=== PATIENT | female | born 1950 | race Caucasian/White ===

== ENCOUNTER 2018-07-19 09:20 | Inpatient (IN) | payer BC, OTHER ==
[~2018-07-19 09:20] MED LIST: LIDOCAINE 2% 100 MG/5 ML SYR ONE; ONDANSETRON 4 MG/2 ML VIAL ONE; PHENYLEPHRINE HCL 100 MCG/ML SYR ONE; POVIDONE-IODINE 20 ML in SODIUM CL IRRIG SOLUTION 500 ML IRR ONE; PROPOFOL/EMULSION 500 MG/50 ML BOTTLE IV ONE; ROPIVACAINE 0.2% 80 MG, EPINEPHrine 0.2 MG, KETOROLAC TROMETHAMINE 30 MG in SYRINGE 0 ML IU ONE; TRANEXAMIC ACID 1,000 MG in NS 100 ML IV ONE; TRANEXAMIC ACID 3,000 MG in NS (SYRINGE) 50 ML IRR ONE; fentaNYL 100 MCG/2 ML INJ ONE
[2018-07-19] MEDS ORDERED: GABAPENTIN 300 MG CAP PO ONE (09:35)
[2018-07-19] MEDS ORDERED: LR 1,000 ML IV ONE (09:35)
[2018-07-19] MEDS ORDERED: DEXAMETHASONE 4 MG/ML VIAL IVP ONE (09:35)
[2018-07-19] MEDS ORDERED: FAMOTIDINE 20 MG TAB PO ONE (09:35)
[2018-07-19] MEDS ORDERED: ACETAMINOPHEN 325 MG TAB PO ONE (09:35)
[2018-07-19] MEDS ORDERED: ONDANSETRON 4 MG/2 ML VIAL IVP ONE (09:35)
[2018-07-19] MEDS ORDERED: ceFAZolin 2 GM/DEXTROSE 100 ML IV ONE (09:35)
[2018-07-19] MEDS ORDERED: TRANEXAMIC ACID 3,000 MG/50 ML BAG IRR ONE (10:26)
[2018-07-19] MEDS ORDERED: ceFAZolin 1 GM/5 ML SYR ONE (10:27)
--- NOTE | 2018-07-19 12:25 | PDHPUP ---
History & Physical Update H&P update statement: This history and physical update is based on an assessment of the patient which was completed after admission or registration (within 24 hours), but prior to the surgery/procedure. H&P update: H&P reviewed & patient examined
[2018-07-19] MEDS ORDERED: MIDAZOLAM 2 MG/2 ML VIAL IVP ONE (12:59)
--- NOTE | 2018-07-19 12:59 | PDANEPAE ---
ANE History of Present Illness Right hip pain, here for R AVINASH ANE Past Medical History - Cardiovascular History Hx Hypertension: No Hx Arrhythmias: No Hx Chest Pain: No Hx Coronary Artery / Peripheral Vascular Disease: No Hx CHF / Valvular Disease: No Hx Palpitations: No Cardiovascular History Comment: HEART MURMUR - Pulmonary History Hx COPD: No Hx Asthma/Reactive Airway Disease: No Hx Recent Upper Respiratory Infection: No Hx Oxygen in Use at Home: No Hx Sleep Apnea: No Sleep Apnea Screening Result - Last Documented: Negative Pulmonary History Comment: CHRONIC NON PRODUCTIVE COUGH. WILL USE INHALERS - Neurologic History Hx Cerebrovascular Accident: No Hx Seizures: No Hx Dementia: No - Endocrine History Hx Diabetes: No - Renal History Hx Renal Disorders: No - Liver History Hx Hepatic Disorders: No - Neurological & Psychiatric Hx Hx Neurological and Psychiatric Disorders: No - Cancer History Hx Cancer: No - Congenital Disorder History Hx Congenital Disorders: No - GI History Hx Gastrointestinal Disorders: No - Other Health History Other Health History: OSTEOARTHRITIS. LOWER PARTIAL - Chronic Pain History Chronic Pain: Yes (RT HIP) - Surgical History Prior Surgeries: HYSTEROSCOPY. RT BREAST BX. TONSILLECTOMY ANE Review of Systems Review of Systems: - Exercise capacity METS (RN): 4 METS ANE Patient History - Allergies Allergies/Adverse Reactions: No Known Allergies Allergy (Verified 07/01/18 16:21) - Home Medications Home Medications: Albuterol [Ventolin Hfa Inhaler] 1 - 2 puffs IH Q4 PRN 07/01/18 [Last Taken 4 Days Ago ~07/15/18] Cholecalciferol Vit D3 [Vitamin D3 2000 units tab (OTC)] 2,000 units PO DAILY [Last Taken 2 Weeks Ago ~07/05/18] Fluticasone Hfa 110 Mcg [Flovent 110 MCG Hfa MDI (*)] 1 puffs IH BID 07/01/18 [ Last Taken 07/19/18 06:30] Ibuprofen [Motrin (*)] 400 mg PO BID 07/01/18 [Last Taken 1 Week Ago ~07/12/18] Multivitamins [Multivitamin (*)] 1 each PO DAILY 07/01/18 [Last Taken 2 Weeks Ago ~07/05/18] diphenhydrAMINE [Benadryl 12.5MG/5ML Oral Liquid (*)] 12.5 mg PO DAILY PRN 07/01 [Last Taken 1 Week Ago ~07/12/18] Tylenol Extra Strength 500 mg PRN 07/19/18 [Last Taken 1 Day Ago ~07/18/18] - NPO status NPO Since - Liquids (Date): 07/19/18 NPO Since - Liquids (Time): 06:30 NPO Since - Solids (Date): 07/18/18 NPO Since - Solids (Time): 18:30 - Smoking Hx Smoking Status: Never smoked ANE Labs/Vital Signs - Vital Signs Blood Pressure: 141/81 Heart Rate: 64 Respiratory Rate: 12 O2 Sat (%): 93 Height: 167.64 cm Weight: 67.132 kg ANE Physical Exam - Airway Neck exam: FROM Mallampati Score: Class 2 Mouth exam: normal dental/mouth exam - Pulmonary Pulmonary: no respiratory distress, no rales or rhonchi - Cardiovascular Cardiovascular: regular rate and rhythym, no murmur, rub, or gallop - ASA Status ASA Status: II ANE Anesthesia Plan Anesthesia Plan: GA with mask, spinal Total IV Anesthesia: Yes
[2018-07-19] MEDS ORDERED: MIDAZOLAM 2 MG/2 ML VIAL ONE (13:00)
[2018-07-19] MEDS ORDERED: BUPIVACAINE 0.75% 10 ML SDV ONE (13:16)
[2018-07-19] MEDS ORDERED: BUPIVACAINE/DEXTROSE 7.5MG/ML 2 ML SPINAL AMP SP ONE (13:18)
[2018-07-19] MEDS ORDERED: PROPOFOL/EMULSION 500 MG/50 ML BOTTLE IV ONE (14:11)
[2018-07-19] MEDS ORDERED: oxyCODONE IR 5 MG TAB PO PRN (14:40)
[2018-07-19] MEDS ORDERED: PROMETHAZINE HCL 25 MG/ML INJ IVP PRN ×2 (14:40→15:14)
[2018-07-19] MEDS ORDERED: fentaNYL 100 MCG/2 ML INJ IVP PRN (14:40)
[2018-07-19] MEDS ORDERED: HYDROCODONE/APAP 5/325 TAB PO PRN (14:40)
[2018-07-19] MEDS ORDERED: NALOXONE HCL 0.4 MG/ML INJ IVP PRN (14:40)
[2018-07-19] MEDS ORDERED: DIAZEPAM 5 MG/ML 1 ML SYR IVP PRN (14:40)
[2018-07-19] MEDS ORDERED: HYDROmorphONE/DILAUDID 2 MG/ML INJ IVP PRN (14:40)
[2018-07-19] MEDS ORDERED: ONDANSETRON 4 MG/2 ML VIAL IVP PRN ×2 (14:40→15:14)
[2018-07-19] MEDS ORDERED: ACETAMINOPHEN 500 MG TAB PO PRN (14:40)
--- NOTE | 2018-07-19 14:59 | POSTOPPROG ---
Post Op Note Date of Operation: 07/19/18 Surgeon: Matt Baldwin Paper Stripper: Tito Anesthesiologist: Thelma Anesthesia: IV Sedation, Spinal Post-op Diagnosis: Right hip severe degenerative arthritis. Procedure: Right total hip arthroplasty Inf/Abcess present in the surg proc area at time of surgery?: No EBL: 100-500
[2018-07-19] MEDS ORDERED: POLYETHYLENE GLYCOL 3350 17 GM PKT PO PRN (15:14)
[2018-07-19] MEDS ORDERED: METOCLOPRAMIDE 10 MG/2 ML VIAL IVP PRN (15:14)
[2018-07-19] MEDS ORDERED: DIPHENOXYLATE/ATROPINE LOMOTIL 1 TAB PO PRN (15:14)
[2018-07-19] MEDS ORDERED: CYCLOBENZAPRINE 10 MG TAB PO PRN (15:14)
[2018-07-19] MEDS ORDERED: TEMAZEPAM 15 MG CAP PO PRN (15:14)
[2018-07-19] MEDS ORDERED: PROMETHAZINE HCL 25 MG SUPPR PR PRN (15:14)
[2018-07-19] MEDS ORDERED: diphenhydrAMINE 25 MG CAP PO PRN (15:14)
[2018-07-19] MEDS ORDERED: MAGNESIUM HYDROXIDE 30 ML UDCUP PO PRN (15:14)
[2018-07-19] MEDS ORDERED: LACTULOSE 20 GM/30 ML UDCUP PO PRN (15:14)
[2018-07-19] MEDS ORDERED: ONDANSETRON DISINTEGRATING 4 MG TAB PO PRN (15:14)
[2018-07-19] MEDS ORDERED: traMADol 50 MG TAB PO PRN (15:14)
[2018-07-19] MEDS ORDERED: NS 500 ML IV PRN (15:14)
[2018-07-19] MEDS ORDERED: BISACODYL 10 MG SUPP PR PRN (15:14)
[2018-07-19] MEDS ORDERED: LR 1,000 ML IV SCH (15:30)
--- NOTE | 2018-07-19 15:32 | PDMN ---
Medical Necessity Medical necessity: [facility] – [place] M560 hip arthroplasty A-2 days OP: R AVINASH -- AUTH# [id number] APPROVED FOR CPT 68318 DONE INPT LOS 1 DAY
--- NOTE | 2018-07-19 15:58 | GOP ---
DATE OF OPERATION: 07/19/2018 SURGEON: Matt Baldwin MD SYSTEM ARCHIVE ANALYST: ANA Kulkarni. Garrison Menjivar CFA. ANESTHESIA: A combination of Marcaine, spinal, and IV sedation. ANESTHESIOLOGIST: Vashti Renee DO. PREOPERATIVE DIAGNOSIS: Right hip severe degenerative arthritis. POSTOPERATIVE DIAGNOSIS: Right hip severe degenerative arthritis. PROCEDURE PERFORMED: A right total hip arthroplasty, ceramic femoral head on highly cross-linked danielle yethylene cup liner. FINDINGS: DESCRIPTION OF PROCEDURE: The patient was given 2 g of IV Ancef preoperatively within 60 minutes of surgery. She also received 1000 mg of IV tranexamic acid. She was placed on the operating room tabl e and given spinal anesthesia with Marcaine by Dr. Renee. She was then placed supine and given IV se dation. A Sarabia catheter was not used. She wore a CJ stocking and SCD on the nonoperative leg. Sh e was rolled to the left lateral decubitus position. The position was secured with the pegboard tabl e attachment. An axillary roll was used, and all pressure points were carefully padded. I was caref ul to lock her pelvis in a rigid vertical position. Her perineum was isolated with plastic adhesive drapes. Her right hip and right lower extremity were prepped with ChloraPrep. They were draped free using sterile sheets, stockinette, and Ioban plastic adhesive drape. The [employer] time-out was performed to verify the correct surgical side and site and the correct patient identity. The [place] time-out was also performed. I made a 5-inch straight oblique posterolateral hip skin incision. Subcutaneous tissues were sharply divided, and hemostasis was obtained using electrocautery. Her fascia amber was identified and split distally along the axis of its fibers. I then curved posteriorly and proximally, and split the fasc ia of the gluteus phoenix and bluntly split the muscle fibers in line with their orientation. A Aster nley self-retaining retractor was inserted. She had a ganglion originating off her posterior capsule behind her greater trochanter. As I was dividing her external rotators, I entered into the ganglion . She had about 8 or 10 cc of clear yellow fluid. The ganglion was excised. The external rotators and the posterior hip capsule were divided as separate layers at the base of the femoral neck, tagged , and reflected posteriorly. A smooth 1/8-inch Steinmann pin was inserted vertically into the ilium, superior to the acetabulum. An 8-inch drill bit was inserted vertically into the greater trochanter and parallel to the first pin. The distance between the two was measured for leg length reference. Her femoral head was dislocated posteriorly. Severe degenerative changes were present on the femora l head. Her femoral neck was osteotomized at the appropriate level and inclination. I was careful to preserve all the posterior capsule and most of the anterior capsule. The remnant of her badly damaged labrum was excised. I prepared the femur first. This allowed me to upholsterer assembly line the amount of natural femoral neck anteversion. This, in turn, allowed me to later determine the correct amount of cup anteversion. She had approx imately 15 degrees of natural femoral neck anteversion. The canal was opened laterally with a box ch justine. I hand broached sequentially up to a size 4. I used a Merari Accolade II size 4 broach as a trial stem. I was careful to lateralize adequately. Appropriate retractors were inserted to expose her acetabulum. The acetabulum was reamed sequentiall y up to 52 mm. I selected the 52 mm Merari Tritanium Trident II cluster hole hemispherical shell. This was tapped securely into place in the proper degree of inclination anteversion. I performed a series of trial reductions to determine length and stability. I obtained an intraopera tive cross-table AP pelvis x-ray. It was difficult to obtain a good quality x-ray. From what I coul d see, I concluded that her leg lengths were appropriate. She was about 4 mm short preoperatively, a nd I was intentionally lengthening her. There was good fill and fit of the femoral component. I suman t back and took about 5 degrees of anteversion out of the position of the acetabular component. For additional fixation of the acetabular shell, I inserted a 30 mm screw through the shell. The 0 degre e Merari X3 highly cross-linked polyethylene liner was inserted and tapped securely into place. The [place] Accolade II stem in a size 4 with high offset was inserted press-fit and was very tight fit. I did 1 final trial reduction and confirmed that the -2.5 neck length with a 36 mm head was the pro per combination. The [place] Biolox Delta ceramic head with an outside diameter of 36 mm and a neck length of -2.5 mm was tapped securely onto the clean trunnion. Her acetabulum was irrigated and mikaela lauren, and the hip was reduced 1 final time. She had excellent anterior and posterior stability and ap propriate length. 40 mL of the joint anesthetic cocktail was injected into the capsule, the deep musculature, and the s ubcutaneous tissues around the skin edges. The joint was thoroughly irrigated 1 final time with a di lute Betadine solution. 50 cc of tranexamic acid solution was irrigated into the wound and left in p lace. The external rotators and the posterior hip capsule were repaired in separate layers with #2 FiberWir e sutures through drill holes in the greater trochanter. This provided a strong posterior capsular a nd external rotator repair. The fascia amber was closed first with 2 [id number] #2 FiberWire sut ures followed by a running #2 barbed Ethicon Stratafix PDO suture. Subcutaneous tissues were closed in layers with interrupted 2-0 Monocryl sutures followed by a running 0 barbed Ethicon Stratafix Thomas derm suture. The skin was closed with a running 3-0 barbed Ethicon Stratafix Monoderm subcuticular s uture. The skin edges were reapproximated and sealed with Dermabond glue. The wound was covered wit h a large Mepilex waterproof surgical dressing. The sacral Mepilex dressing was also applied. A long-leg CJ stocking and SCD were applied to her right lower extremity. She wore a stocking and S CD on the opposite leg during the procedure. An abduction pillow was placed between her knees. She was awakened from anesthesia and rolled to the supine position on her [facility]. She was taken to PACU in satisfactory condition. There were no recognized intraoperative complications. The estimated blood loss about 400 mL. The sponge and needle count were correct on 2 occasions. I used a Merari Tritanium Trident II hemispherical cluster hole acetabular shell with an outside bereket meter of 52 mm. I used a 30 mm supplemental fixation screw. The liner was a [place] X3 0-degree hig hly cross-linked liner with an inside diameter of 36 mm. The femoral component was a press-fit Stryk er high offset Accolade II stem in a size 4. Her femoral head was a Merari Biolox Delta ceramic hea d with a -2.5 mm neck length and a 36 mm outside diameter. Ruben Banuelos and Garrison Menjivar acted as surgical assistants. Their assistance was a medical necess ity for safe completion of the procedure. Copy requested to: Garrison Menjivar [facility] ANA [facility] /[id number]/MODL
[2018-07-19] MEDS ORDERED: ALBUTEROL 60 PUFFS/8 GM MDI IH PRN (17:30)
[2018-07-19] MEDS: ACETAMINOPHEN 325 MG TAB PO SCH (18:04)
[2018-07-19] MEDS: KETOROLAC 15 MG/1 ML SDV IVP SCH (18:05)
[2018-07-19] MEDS: ceFAZolin 2 GM/DEXTROSE 100 ML IV SCH (21:29)
[2018-07-19] MEDS: ASPIRIN 325 MG TAB PO SCH (21:29)
[2018-07-19] MEDS: SENNOSIDES/DOCUSATE SODIUM TAB PO SCH (21:29)
[2018-07-19] MEDS: FAMOTIDINE 20 MG TAB PO SCH (21:29)
[2018-07-19] MEDS: oxyCODONE IR 5 MG TAB PO PRN (21:34)
[2018-07-19] MEDS: FLUTICASONE HFA 110 MCG MDI IH SCH (22:04)
[2018-07-20] MEDS: ACETAMINOPHEN 325 MG TAB PO SCH ×3 (00:35→11:48)
[2018-07-20] MEDS: KETOROLAC 15 MG/1 ML SDV IVP SCH ×3 (00:35→11:49)
[2018-07-20] MEDS: ceFAZolin 2 GM/DEXTROSE 100 ML IV SCH (05:52)
[2018-07-20] MEDS ORDERED: FERROUS SULFATE 325 MG TAB PO SCH (08:00)
[2018-07-20] MEDS: oxyCODONE IR 5 MG TAB PO PRN (09:13)
[2018-07-20] MEDS: ASPIRIN 325 MG TAB PO SCH (09:13)
[2018-07-20] MEDS: SENNOSIDES/DOCUSATE SODIUM TAB PO SCH (09:13)
[2018-07-20] MEDS: FAMOTIDINE 20 MG TAB PO SCH (09:13)
[2018-07-20] MEDS: FLUTICASONE HFA 110 MCG MDI IH SCH (09:49)
--- NOTE | 2018-07-20 11:20 | SOAPPROG ---
SOAP Progress Note Assessment/Plan: Assessment: Afebrile. Moderate pain. H/H is good. Sciatic nerve intact. Films look good. Dsg is dry. Plan: DC today when cleared by PT. 07/20/18 11:19 Objective: Vital Signs Temp Pulse Resp BP Pulse Ox 36.8 C 68 16 116/68 95 07/20/18 07:21 07/20/18 09:50 07/20/18 09:50 07/20/18 07:21 07/20/18 09:50 Laboratory Results 07/20/18 04:33 07/19/18 07/20/18 07/21/18 05:59 05:59 05:59 Intake Total 3340 Output Total 900 Balance 2440 ICD10 Worksheet Patient Problems: Problems Problem Status Onset Osteoarthritis of right hip Acute
--- NOTE | 2018-07-20 11:34 | ASMTLACE ---
LACE Length of stay for Answers: 2 days current admission Acuity / Level of Answers: Yes Care: Did the patient have an inpatient admission? Comorbidities - select Answers: Opioid dependence all that apply / Chronic pain # of Emergency department Answers: 0 visits in the last 6 months Score: 9 Date Signed: 07/20/2018 11:34 AM Electronically Signed By:TRUDI Angela
--- NOTE | 2018-07-20 11:36 | GDS ---
ADMISSION DIAGNOSIS: Right hip severe degenerative arthritis. DISCHARGE DIAGNOSIS: Right hip severe degenerative arthritis. OPERATION PERFORMED: 07/19/2018: Right total hip arthroplasty, ceramic femoral head on highly cross -linked polyethylene cup liner. POSTOPERATIVE COMPLICATIONS: None. CONDITION ON DISCHARGE: Improved. DESCRIPTION OF HOSPITAL COURSE: The patient was admitted to the hospital on the morning of surgery. Her admission CBC was normal. The same day, under a combination of Marcaine, spinal, and IV sedatio n, she underwent a right total hip arthroplasty. Postoperatively, she was treated with multimodal DV T prophylaxis, including aspirin. On the first postoperative day, her hemoglobin and hematocrit was 12.2 and 37.7. She was seen by Physical Therapy and made good progress with ambulation and stairs. By the time of discharge, she was afebrile and was independent walking with her walker. DISPOSITION: The patient discharged to her home. She will go to outpatient physical therapy at [facility]. She may progress to full weightbearing on the right as tolerated. Use an abduction pillow in bed for 3 weeks. Use CJ stockings for 1 week. Continue aspirin 325 mg p.o. daily for 21 days. Jolanta mckenzie has prescriptions for Celebrex, oxycodone, and tramadol for pain control. I will see her back in t office on August 08, 2018. If there are any problems, she is to call me at the office. /[id number]/MODL
--- NOTE | 2018-07-20 11:37 | ASMTCMCOM ---
CM Note CM Note Notes: Pt had planned OA of hip. PT rec home/outpatient. Pt medically stable for d/c with roommates and son support. No CM d/c needs identified. Date Signed: 07/20/2018 11:37 AM Electronically Signed By:TRUDI Angela
[2018-07-20 15:05] VITALS: BP 110/53
--- NOTE | 2018-07-22 22:01 | POSTANESTH ---
Post Anesthetic Evaluation Cardiovascular Status: Normal, Stable, Similar to Pre-Op Cond Respiratory Status: Normal, Stable, Similar to Pre-op Cond. Level of Consciousness/Mental Status: Can Participate in Eval, Alert and Oriented Pain Control: Adequate, Prn Tx Ordered Nausea/Vomiting Control: Adequate, Prn Tx Ordered Complications Possibly Related to Anesthesia: None Noted
== END 2018-07-20 15:52 | disposition home or self-care (01) | DRG 470 ==
LOC: F3N 09:20
PROVIDERS: ADMIT Orthopaedic Surgery; ATTEND Orthopaedic Surgery
PROC: 0SR904A Replacement of Right Hip Joint with Ceramic on Polyethylene Synthetic Substitute, Uncemented, Open Approach (ICD-10-PCS; principal; 2018-07-19 11:30)
DX: M16.11 Unilateral primary osteoarthritis, right hip (principal)
CPT/HCPCS: 97116-GP; 97161-GP; 97165-GO; 97535-GO; C1713; J0171; J0690; J1100; J1885; J2001; J2250; J2370; J2405; J2704; J2795; J3010